=== PATIENT | male | born 1960 | race Caucasian/White ===

== ENCOUNTER 2021-04-03 14:12 | Emergency (ER) | payer OTHER ==
[~2021-04-03] VITALS: Ht 185.4 cm; Wt 94.0 kg
[2021-04-03 16:19] VITALS: BP 126/80
[2021-04-03] MEDS ORDERED: bacitracin 15gm ointment TP ONE (16:50)
[2021-04-03] MEDS ORDERED: LIDOcaine 1% W/epiNEPHrine 1:200,000 10ml vial IJ ONE (16:50)
== END 2021-04-03 17:57 | disposition home or self-care (01) ==
LOC: ER 14:13
DX: S61.512A Laceration without foreign body of left wrist, initial encounter (principal); W45.8XXA Other foreign body or object entering through skin, initial encounter; Y93.89 Activity, other specified; Y92.89 Other specified places as the place of occurrence of the external cause; Y99.8 Other external cause status
CPT/HCPCS: 12002; 99282